=== PATIENT | female | born 1940 | race Caucasian/White ===

== ENCOUNTER 2022-06-20 09:02 | Outpatient (CLI) | payer MEDICARE, BC, SELFPAY ==
[2022-06-20 09:34] LABS: Basophils Absolute Auto 0.05 K/uL (0.00-0.30); Basophils Percent Auto 0.9 % (0.0-3.0); Eosinophils Absolute Auto 0.23 K/uL (0.00-0.50); Eosinophils Percent Auto 4.3 % (0.0-7.0); Hematocrit 52.8 % (33.0-51.0); Hemoglobin* 17.8 gm/dL (12.0-16.0); Immature Granulocytes Abs Auto 0.01 K/uL (0.00-0.30); Immature Granulocytes Pct Auto 0.2 %; Lymphocytes Absolute Auto 1.26 K/uL (0.90-2.90); Lymphocytes Percent Auto 23.4 % (20-44); Mean Corpuscular HGB Conc 34 gm/dL (32-36); Mean Corpuscular Hemoglobin 36 pg (26-34); Mean Corpuscular Volume 106 fL (80-100); Monocytes Percent Auto 14.5 % (0.0-11.0); Neutrophils Absolute Auto 3.05 K/uL (1.7-7.0); Neutrophils Percent Auto 56.7 % (42.0-72.0); Platelet Count* 166 K/uL (140-440); RDW Coefficient of Variation % 14.5 % (11.5-15.5); Red Blood Count 4.99 m/uL (4.00-5.20); White Blood Count* 5.38 K/uL (4.50-11.00)
[2022-06-20 09:49] LABS: Slide Review Reflex No
== END 2022-06-20 09:03 | disposition home or self-care (01) ==
PROVIDERS: PCP Student in an Organized Health Care Education/Training Program; Visit Provider Student in an Organized Health Care Education/Training Program
DX: D45 Polycythemia vera (principal)
CPT/HCPCS: 36415; 85025; 99195

== ENCOUNTER 2022-09-08 12:06 | Emergency (ER) | payer MEDICARE, BC, SELFPAY ==
[2022-09-08 12:21] VITALS: BP 149/75; PULSE 62; RESP 18; TEMP 36.4; O2SAT 98; BMI 22.0
--- NOTE | 2022-09-08 13:38 | ED.GENADULT ---
HPI - General Adult General Chief complaint: Fall/Minor Trauma Stated complaint: Fell last night, low BP Time Seen by Provider: 09/08/22 12:41 History of Present Illness HPI narrative: This 82-year-old female called the clinic today and was told to come into the emergency department for evaluation. She states that she had a near syncopal event last evening where she got up to the kitchen to cut some food for a little snack. She began to feel lightheaded and went to the floor. She did not lose consciousness. She does not report any injury except for a very small abrasion on the left side of her head from her glasses. She states that she feels back to normal at this time. She did start a new blood pressure medicine 5 days ago and suspected that this may have contributed to these symptoms. She did not take her hydrochlorothiazide 12.5 mg tablet today because of this. She does not report any chest pain, shortness of breath, signs of infection, or fever. Related Data Allergies Allergy/AdvReac Type Severity Reaction Status Date / Time Sulfa (Sulfonamide Allergy Verified 09/08/22 12:21 Antibiotics) Review of Systems Status of ROS: Reports: 10 or more systems reviewed and unremarkable except as noted in History and below Narrative: Constitutional: No fevers, no weight gain or loss. Eyes: No discharge. No vision changes. HENT: No congestion, no sore throat, no ear pain. Cardiovascular: No chest pain, no palpitations. Respiratory: No shortness of breath, no wheezes, no cough. Gastrointestinal: No abdominal pain, no vomiting, no diarrhea. Genitourinary: No dysuria, no hematuria. Musculoskeletal: Normal range of motion. Skin: No rashes, no pruritis. Neurological: No weakness, sensory change, speech change. Near syncopal episode last night as described above. Endo/Heme/Allergies: No bruising or bleeding. No polydipsia. Pysch: no suicidality, no anxiety, no insomnia. All other systems reviewed and are negative. PFSH PFS Social History Smoking Status: Former smoker Do you use any of these nicotine containing products: None Second hand tobacco smoke exposure: No How often do you have a drink containing alcohol: 4 or more times a week How many standard drinks containing alcohol do you have on a typical day: 1 or 2 How often do you have six or more drinks on one occasion: Never AUDIT-C Alcohol total score: 4 Non-prescribed substance use: denies use service: No Exam Narrative: Exam Narrative: Constitutional: Well-developed, well-nourished, no acute distress. HEENT: Normocephalic, atraumatic. Neck: Normal range of motion. Nontender. Supple. Heart: Regular. No murmurs. Normal rate. Intact distal pulses. Lungs: Clear to auscultation. No chest discomfort. No wheezes, rhonchi, or rales. Abdomen: Normal bowel sounds. Nontender. No rebound tenderness. Genitalia: Deferred. Back: No midline tenderness. Normal range of motion. Extremities: Normal range of motion. No injury. Skin: Intact. No rash. Warm. No erythema or pallor. Neurologic: No altered sensation. No weakness. Alert and oriented. Psychiatric: No suicidality. No anxiety or depression. No insomnia. Nursing notes and vitals signs are reviewed. Const: Vital Signs, click to edit/add: Vital Signs - 24 hr 09/08/22 12:21 Temperature 97.5 F L Pulse Rate [Pulse Oximeter] 62 Respiratory Rate 18 Blood Pressure [Ri t Upper Arm] 149/75 H Pulse Oximetry 98 Oxygen Delivery Me thod Room Air Course Vital Signs Vital signs: Initial Vital Signs Temperature 97.5 F L 09/08/22 12:21 Temperature Source Temporal Artery Scan 09/08/22 12:21 Pulse Rate 62 09/08/22 12:21 Respiratory Rate 18 09/08/22 12:21 Blood Pressure 149/75 H 09/08/22 12:21 Blood Pressure Mean 99 09/08/22 12:21 Blood Pressure Position Sitting 09/08/22 12:21 Pulse Oximetry 98 09/08/22 12:21 Oxygen Delivery Method Room Air 09/08/22 12:21 Vital Signs Temperature 97.5 F L 09/08/22 12:21 Pulse Rate 62 09/08/22 12:21 Respiratory Rate 18 09/08/22 12:21 Blood Pressure 149/75 H 09/08/22 12:21 Pulse Oximetry 98 09/08/22 12:21 Oxygen Delivery Method Room Air 09/08/22 12:21 Temperature 97.5 F L 09/08/22 12:21 Pulse Rate 62 09/08/22 12:21 Respiratory Rate 18 09/08/22 12:21 Blood Pressure 149/75 H 09/08/22 12:21 Pulse Oximetry 98 09/08/22 12:21 Oxygen Delivery Method Room Air 09/08/22 12:21 Medical Decision Making MDM Narrative Medical decision making narrative: This patient feels completely back to normal and comes in for evaluation because her primary clinic instructor to do so. She does have a follow-up with the clinic in 2 days. She did start a new medication and had a near syncopal episode last night. It is possible that the hydrochlorothiazide contributed to this. There are other factors that can cause lightheadedness additionally. For now the patient's blood pressure is a bit elevated at around 150 or 160. Her EKG shows normal sinus rhythm. Her exam is reassuring. I advised her to record her blood pressures regularly and bring this information to her follow-up appointment to re-evaluate her medications. At the time of discharge the patient appears safe for outpatient management. The treatment plan is reviewed along with written and verbal return precautions. Reasons to return and the importance of close followup were also reviewed. ECG Data Attestation: I personally reviewed and interpreted this ECG as follows: Interpretation: Normal sinus rhythm. Rate is 69 beats per minute. There are no ST or T-wave abnormalities. Discharge Plan Discharge Clinical Impression: Near syncope Patient Disposition: Home, Self-Care Condition: Improved Additional Instructions: Continue current plans. Record blood pressures and follow-up with primary physician as scheduled. Return if worsening. Follow Up/Referrals: Shira Fontana PA-C [Primary Care Provider] - Stand Alone Forms: [employer] Info Instructions
== END 2022-09-08 13:55 | disposition home or self-care (01) ==
PROVIDERS: Emergency Provider Emergency Medicine Emergency Medical Services; PCP Student in an Organized Health Care Education/Training Program
DX: R55 Syncope and collapse (principal)
CPT/HCPCS: 93005; 99283; 99284

== ENCOUNTER 2023-01-27 09:19 | Outpatient (CLI) | payer MEDICARE, BC, SELFPAY ==
--- NOTE | 2023-01-27 09:45 | CRLHL7_ITS ---
For Patients: As a result of the Century Cures Act, medical imaging exams and procedure reports are released immediately into your electronic medical record. You may view this report before your referring provider. If you have questions, please contact your health care provider. INDICATION: UNCONTROLLED HTN TECHNIQUE: Pierson scale, color Doppler and spectral Doppler evaluation of both kidneys and renal arteries performed. COMPARISON: None available FINDINGS: BILATERAL RENAL ARTERY DUPLEX ULTRASOUND ABDOMINAL AORTA: Peak systolic velocity = 70 cm/s. No aortic aneurysm. RIGHT KIDNEY: 10.4 cm in length. There is no hydronephrosis. Peak systolic velocity = 123 cm/second Renal artery to aortic peak systolic velocity ratio = 1.8 Resistive indices: 0.8 Renal vein = patent LEFT KIDNEY: 9.2 cm in length. There is no hydronephrosis. Peak systolic velocity = 99 cm/second Renal artery to aortic peak systolic velocity ratio = 1.4 Resistive indices: 0.76-0.79 Renal vein = patent IMPRESSION: No evidence of significant renal artery stenosis within the visualized renal arteries. Dictated by Brian Kern MD @ 01/27/2023 11:55:23 AM (Electronically Signed)
== END 2023-01-27 09:20 | disposition home or self-care (01) ==
LOC: US 09:20
PROVIDERS: PCP Student in an Organized Health Care Education/Training Program; Visit Provider Student in an Organized Health Care Education/Training Program
DX: I10 Essential (primary) hypertension (principal)
CPT/HCPCS: 76775; 93975

== ENCOUNTER 2024-10-07 11:06 | Emergency (ER) | payer MEDICARE, BC, SELFPAY ==
[2024-10-07] VITALS (16 sets, daily range): BP systolic 124–149; BP diastolic 68–81; PULSE 60–96; RESP 12–33; TEMP 36.3; O2SAT 93–98; BMI 22.8
--- OUTSIDE RECORDS SUMMARY | 2024-10-07 11:08 | XMS_ITS | Clinical Summary ---
Author Organization [facility] Address [address] [place] [address] Care Team Providers Care Icer Machine Name Role Phone Shira Fontana Primary Care Provider [phone] Allergies Active Allergy Reactions Criticality Noted Date Comments Diphenhydramine Behavioral Disturbances 09/17/2022 Feels antsy Hydralazine Itching 01/08/2023 Hydrochlorothiazide Itching 09/19/2022 Sulfa (Sulfonamide Antibiotics) Itching 05/14/2022 Medications aflibercept 2 mg/0.05 mL soln Inject intravitreal . 0 3 Active multivitamin (MVI) tablet Take 1 Tablet by mouth once daily. 0 3 Active timolol hemihydrate (BETIMOL) 0.5 % ophthalmic solution Place into both eyes two times daily. Active docusate (Stool Softener) 100 mg capsule Take 250 mg by mouth once daily. Taking 3 tablets a day Active spironolactone (ALDACTONE) 25 mg tabletIndications:H TN (hypertension) Take 1 Tablet (25 mg) by mouth once daily. 90 Tablet 3 4 Active carvediloL (Coreg) 25 mg tabletIndications:A trial fibrillation, unspecified type (HC),Uncontrolled hypertension Take 1 Tablet (25 mg) by mouth two times daily. 180 Tablet 3 4 Active amLODIPine (NORVASC) 10 mg tabletIndications:U ncontrolled hypertension Take 1 Tablet (10 mg) by mouth once daily. 90 Tablet 3 4 Active omega 1-coc-vva-fish oil 1,000 mg (250 mg-750 mg)/5 mL liqd Take 3 capsules. by mouth once daily. Active apixaban (Eliquis) 5 mg tabletIndications:p revent thromboembolism in chronic atrial fibrillation Take 1 Tablet (5 mg) by mouth two times daily. 180 Tablet 3 4 Active cloNIDine HCL (CATAPRES) 0.1 mg tabletIndications:H ypertension, unspecified type TAKE 1 TABLET (0.1 MG) BY MOUTH AT BEDTIME. 90 Tablet 3 4 Active valsartan (DIOVAN) 160 mg tabletIndications:P rimary hypertension Take 1 Tablet (160 mg) by mouth two times daily. 180 Tablet 3 4 Active Graduated Compression StockingsIndication s:Bilateral lower extremity edema For personal use. Length: calf Strength: 20-30 mmHg. Please measure patient at pharmacy. 1 Packet 5 Active dapagliflozin propanediol (FARXIGA) 10 mg tabletIndications:H eart failure, diastolic, due to HTN (HC) Take 1 Tablet (10 mg) by mouth once daily. 90 Tablet 3 5 Active furosemide 20 mg tabletIndications:H eart failure, diastolic, due to HTN (HC) TAKE 1/2 TABLET BY MOUTH ONCE DAILY IN THE MORNING. 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 Still tired and Lethargic. Still having dizzy spells but less intense. Feeling Fuzzy. Had one day of Ringing in ears on Thursday, No Reoccurrences ) 10/06/2024 Travel 09/30/2024 9:55 AM CDT Office Visit [facility] [address] [place] [address] Shira Fontana PA Blood Pressure (Low B/P readings at home. Has fallen 2 times and feeling off balance. Light headed feeling, neck pain, No nausea.) 09/29/2024 Travel 09/12/2024 8:32 AM CDT Anesthesia Event [facility] [address] [place] [address] Sole Bruce MD Perese, Deniz A, MD 09/12/2024 5:17 AM CDT - 09/12/2024 2:00 PM CDT Hospital Encounter [address] [address] Eliud Braxton MD Left renal mass Discharge Disposition: Home Self Care 09/12/2024 Travel 09/06/2024 2:00 PM CDT Ancillary Procedure [facility] [address] [place] [address] 09/06/2024 9:55 AM CDT Office Visit [facility] [address] [place] [address] Shira Fontana PA Fall (08/27 wasn't feeling right when fel happened,l in Kitchen. No Current URBINA. Having some Tired feelings. No dizzy spells. Has list of B/P from 08/31-09/06) 09/05/2024 Travel 08/22/2024 Refill [facility] [address] [place] [address] Shira Fontana PA Refill Request (Furosemide) 08/17/2024 9:30 AM CDT Office Visit [facility] [address] [place] [address] Shira Fontana PA Preoperative Exam (Dr. Carlos. Freezing left Kidney. ) 08/17/2024 Travel 08/16/2024 Telephone [facility] [address] [place] [address] Shira Fontana PA Appointment 08/12/2024 Travel 08/04/2024 2:00 PM NEWS VIDEOGRAPHER Office Visit [address] [place] [address] [place] [address] Brian Muñoz MD Follow Up; CV General Cardiology Est (clearance) 08/04/2024 Travel 08/02/2024 Travel 07/30/2024 Telephone [facility] [address] [place] [address] Shira Fontana PA Prior Authorization (dapagliflozin propanediol (FARXIGA) 10 mg tablet (APPROVED 06/30/24 - 07/30/25)) 07/26/2024 9:20 AM NEWS VIDEOGRAPHER Ancillary Procedure [facility] [address] [place] [address] 07/25/2024 Travel 07/18/2024 10:20 AM NEWS VIDEOGRAPHER Office Visit [facility] [address] [place] [address] Shira Fontana PA Concerns (Cannot stay asleep/Wants labs regarding failing a preop exam) 07/18/2024 Travel 07/13/2024 Travel from Last 3 Months Immunizations Immunization Administration Dates Next Due COVID-19 VACCINE SPIKEVAX (M ODERNA 50MCG/0.5ML) 12YO+ PFS 12/08/2023,03/24/2023 COVID-19 vaccine (Moderna 100mcg/0.5mL) PF, MDV 03/28/2021,07/13/2020 COVID-19 vaccine (Moderna 50 mcg/0.5mL) 12YO+ BIVALENT PF, MDV 08/10/2020 Influenza Virus, Unspecified 03/10/2022,08/10/19 21 Influenza, Inactivated AIIV4 (Age 65+ Years) Preserv Free 02/16/2023 Influenza, Inactivated IIV3 (Age 65+ Years) Preserv Free 02/09/2024 Pneumococcal, Unspecified 01/30/2010,06/01/2000 RSV, Recombinant ADJ Reconst ituted (Arexvy 120MCG/0.5mL) 02/23/2024 Zoster (Zostavax-ZVL, live) 06/01/2021 Family History Medical History Relation Name Comments Stroke Father Hypertension Mother Cancer-breast Sister Hypertension Sister Restless legs syndrome Son Orion Cancer-ovarian No Family History Relation Name Status Comments Daughter Nisreen Alive Father Mother Sister Son Orion Alive Social History Tobacco Use Types Packs/Day Years Used Date Smoking Tobacco: Former Cigarettes 1 10 Smokeless Tobacco: Never Tobacco Cessation:Counseling Given: Yes Alcohol Use Standard Drinks/Week Comments Yes 14 (1 standard drink = 0.6 oz pu re alcohol) 2 drinks / day PHQ-2 Answer Date Recorded PHQ-2 TOTAL SCORE 0 07/18/2024 Social Connections Answer Date Recorded Do you often feel lonely or isolated from those around you? 0 09/05/2024 Financial Resource Strain Answer Date R ecorded Difficulty of Paying Living Expenses 3 09/05/2024 Difficulty of Paying Living Expenses Not on file 09/05/2024 Food Insecurity Answer Date Recorded Do you worry your food will run out before you are able to buy more? 1 09/05/2024 Transportation Needs Answer Date Record ed Does lack of transportation keep you from medica l appointments? 1 09/05/2024 Does lack of transportation keep you from work, meetings or getting things that you need? 1 09/05/2024 Housing Stability Answer Date Recorded What is your housing situation today? 1 09/05/2024 Interpersonal Safety Answer Date Record ed Are you being hit, kicked, p ushed or yelled at (see row info)? No 09/12/2024 Interpersonal Safety Abuse 12 - 18 Not on file 09/12/2024 Interpersonal Safety Ambulatory Vulnerability No t on file 09/12/2024 Utilities Answer Date Recorded Do you have trouble paying f or utilities (for example, heat, electricity, water, phone)? 1 09/05/2024 Comments No Sex and Gender Information Value Date Recorded Sex Assigned at Not on file Legal Sex Female 8:26 AM NEWS VIDEOGRAPHER Gender Identity Not on file Sexual Orientation Not on file Occupation Industry Job Start Date Job End Date [place] [employer] Not on file Not on file Not on file Obstetrics History Last Filed Vital Signs Vital Sign Reading Time Taken Comments Blood Pressure 92/52 10/07/2024 9:23 AM CDT Pulse 70 10/07/2024 9:23 AM CDT Temperature 36.2 C (97.1 F) 09/12/2024 10:50 AM CDT Respiratory Rate 16 09/12/2024 10:50 AM CDT Oxygen Saturation 99% 09/30/2024 9:48 AM CDT Inhaled Oxygen Concentration - - Weight 62.1 kg (137 lb) 10/07/2024 9:23 AM CDT Height 165.1 cm (5' 5) 09/12/2024 6:23 AM CDT Body Mass Index 22.8 09/12/2024 6:23 AM CDT Plan of Treatment Upcoming Encounters Date Type Department Care Team (Late st Contact Info) Description 10/11/2024 10:00 AM CDT Office Visit [facility] [address] [facility] [address] [place] [id number] Jamari Anders MD [address] [facility] [address] [place], [place] [id number] Health Maintenance Due Date Last Done Comments Tdap 08/20/1951 Pneumococcal series for age 50+ (1 of 2 - PCV) 08/20/1959 01/30/2010, 06/01/2000 Tetanus booster 1960 DEXA/DXA scan for age 65+ 2005 Zoster (shingles) series for age 50+ (1 of 2) 07/27/2021 06/01/2021 COVID-19 vaccine series (7 - Moderna risk season) 2024 02/23/2024, 12/08/2023, 03/24/2023, Additional history exists Medicare Wellness for age 65+ 02/09/2025 02/09/2024, 01/07/2023 Depression screening for age 12+ 07/18/2025 07/18/2024, 01/09/2023, 01/09/2023, Additional history exists BMI (ht and wt on same day) for age 18+ 08/04/2025 08/04/2024, 07/18/2024, 03/04/2024, Additional history exists Influenza Vaccine Completed 02/09/2024, , 03/10/2022, Additional history exists RSV vaccine for adults or Completed 02/23/2024 Procedures Procedure Name Priority Date/Time Associated Diagnosis Comments BASIC METABOLIC PANEL Routine 09/30/2024 10:53 AM CDT Hypotension, unspecified hypotension type CT CRYOTHERAPY KIDNEY LEFT Routine 09/12/2024 10:02 AM CDT Left renal mass ENDOTRACHEAL TUBE Routine 09/12/2024 9:4 7 AM CDT ENDOTRACHEAL TUBE Routine 09/12/2024 9:4 7 AM CDT ENDOTRACHEAL TUBE Routine 09/12/2024 9:4 7 AM CDT ENDOTRACHEAL TUBE Routine 09/12/2024 9:4 7 AM CDT PROTIME-INR STAT 09/12/2024 8:02 AM CDT PLATELET COUNT STAT 09/12/2024 8:02 AM CDT HEMOGLOBIN STAT 09/12/2024 8:02 AM CDT SCAN-CARDIAC STRIP 09/12/2024 12 :[address] HEAD BRAIN WO STAT 09/06/2024 10:4 8 AM CDT Traumatic injury of head, initial encounter HEMOGLOBIN Routine 08/17/2024 9:53 AM CDT Preoperative cardiovascular examination BASIC METABOLIC PANEL Routine 08/17/2024 9:53 AM CDT Preoperative cardiovascular examination XR MAMMO BRENDA UNI SCREEN RIGHT Routine 07/26/2024 9:27 AM NEWS VIDEOGRAPHER Visit for screening mammogram BASIC METABOLIC PANEL Routine 07/18/2024 11:39 AM NEWS VIDEOGRAPHER Heart failure, diastolic, due to HTN (HC) from Last 3 Months Results * (ABNORMAL) BASIC METABOLIC PANEL (09/30/2024 10:53 AM CDT) Only the most recent of3 resultswithin the time period is included. GLUCOSE 108(H) 65 - 99 mg/dL [facility] Comment: Fasting reference interval For someone without known diabetes, a glucose value between 100 and 125 mg/dL is consistent with prediabetes and should be confirmed with a follow-up test. UREA NITROGEN (BUN) 38(H) 7 - 25 mg/dL [facility] CREATININE 1.42(H) 0.60 - 0.95 mg/dL [facility] EGFR 36(L) > OR = 60 mL/min/1.7 3m2 [facility] BUN/CREATININE RATIO 27(H) 6 - 22 (calc) [facility] SODIUM 137 135 - 146 mmol/L [facility] POTASSIUM 4.4 3.5 - 5.3 mmol/L [facility] CHLORIDE 96(L) 98 - 110 mmol/L [facility] CARBON DIOXIDE 28 20 - 32 mmol/L [facility] ELECTROLYTE BALANCE 13 7 - 17 mmol/L (calc) [facility] CALCIUM 10.7(H) 8.6 - 10.4 mg/dL [facility] Blood BLOOD SPECIMEN / Unknown 09/30/2024 10:53 AM CDT 09/30/2024 10:53 AM CDT us Shira HERBERT CHEMISTRY Final Res ult [employer] [address] [place] [address], [place] [address] [place] [address] * CT CRYOTHERAPY KIDNEY LEFT (09/12/2024 10:02 AM CDT) Anatomical Region Laterality Modality KIDNEY L Computed Tomogra phy, Other, Other 09/12/2024 10:0 2 AM CDT Impressions 09/12/2024 10:[address]-guided cryoablation of the mid left renal biopsy-proven clear cell carcinoma. Narrative 09/12/2024 10:59 AM CDT For Patients: As a result of the Cures Act, medical imaging exams and procedure reports are released immediately into your electronic medical record. You may view this report before your referring provider. If you have questions, please contact your health care provider. [facility] LOCATION: [facility] MEDICAL IMAGING DATE: 09/12/2024 PROCEDURE: CT GUIDED LEFT RENAL MASS CRYOABLATION INTERVENTIONAL RADIOLOGIST: Eliud Braxton MD. 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 MODERATE SEDATION: General endotracheal anesthesia. ANTIBIOTICS: Ancef 2 g IV. ADDITIONAL MEDICATIONS: None. FLUOROSCOPIC TIME: 0.2 minutes. DOSE LENGTH PRODUCT: 672 mGycm. CONTRAST: 5 mL of contrast diluted and 95 mL of saline. COMPLICATIONS: No immediate complications. PROCEDURE/TECHNIQUE: A nonenhanced CT study was performed for localization purposes. Using intermittent CT fluoroscopy, a variable length cryoprobe was inserted into the exophytic mass arising from the lateral left kidney and stuck into place. Using intermittent CT fluoroscopy, a 5 Kosovan b-datumeh catheter was advanced between the anterior kidney and colon and hydrodissection was performed with 100 mL of dilute contrast. A standard 10 minute freeze cycle was performed with intermittent CT monitoring to evaluate for a ice ball coverage. After the cryoprobe had thawed, it was removed. A completion nonenhanced CT study was obtained to evaluate for perirenal hemorrhage or complication. Dose reduction techniques were used. FINDINGS: The construction operations manager image shows the partially exophytic solid mass arising from the mid left kidney partial nephrectomy site. Images obtained during probe placement show the cryoprobe which appears to transverse the central aspect of the mass. Images obtained during hydrodissection show displacement of the colon anteriorly. Images obtained during the cryoablation show the ablation defect which appears to completely encompassed the intended target. Completion images show the ablation defect which appears to completely encompassed the lesion. No significant perirenal or retroperitoneal hemorrhage. Procedure Note Eliud Braxton MD - 09/12/2024 For Patients: As a result of the Cures Act, medical imagingexams and procedure reports are released immediately into your electronicmedical record. You may view this report before your referring provider.If you have questions, please contact your health care provider. [facility] LOCATION: [facility] MEDICAL IMAGING DATE: 09/12/2024 PROCEDURE: CT GUIDED LEFT RENAL MASS CRYOABLATION INTERVENTIONAL RADIOLOGIST: Eliud Braxton MD. INDICATION: 84-year-old female with a recurrent clear cell carcinoma ofthe left kidney along a previous partial nephrectomy resection. MODERATE SEDATION: General endotracheal anesthesia. ANTIBIOTICS: Ancef 2 g IV. ADDITIONAL MEDICATIONS: None. FLUOROSCOPIC TIME: 0.2 minutes. DOSE LENGTH PRODUCT: 672 mGycm. CONTRAST: 5 mL of contrast diluted and 95 mL of saline. COMPLICATIONS: No immediate complications. PROCEDURE/TECHNIQUE: A nonenhanced CT study was performed for localization purposes. Using intermittent CT fluoroscopy, a variable length cryoprobe wasinserted into the exophytic mass arising from the lateral left kidney andstuck into place. Using intermittent CT fluoroscopy, a 5 Kosovan Yueh catheter was advancedbetween the anterior kidney and colon and hydrodissection was performedwith 100 mL of dilute contrast. A standard 10 minute freeze cycle was performed with intermittent CTmonitoring to evaluate for a ice ball coverage. After the cryoprobe hadthawed, it was removed. A completion nonenhanced CT study was obtained to evaluate for perirenalhemorrhage or complication. Dose reduction techniques were used. FINDINGS: The construction operations manager image shows the partially exophytic solid mass arising from themid left kidney partial nephrectomy site. Images obtained during probe placement show the cryoprobe which appears totransverse the central aspect of the mass. Images obtained during hydrodissection show displacement of the colonanteriorly. Images obtained during the cryoablation show the ablation defect whichappears to completely encompassed the intended target. Completion images show the ablation defect which appears to completelyencompassed the lesion. No significant perirenal or retroperitonealhemorrhage. IMPRESSION: Successful CT-guided cryoablation of the mid left renal biopsy-provenclear cell carcinoma. Eliud Braxton MD CT Final Resul t * HCHG TUBE PR1, HCHG KIT CO2 DETECTOR PR5, HCHG STYLET PR1, HCHG MOUTHPIECE PR1 (09/12/2024 9:47 AM CDT) Narrative Hyun Zayas CRNA - 09/12/2024 9:47 AM CDT Hyun Zayas CRNA 09/12/2024 9:48 AM Procedure: ETT Patient location during procedure: procedure room ETT Properties Mask Ventilation: easy Final Technique: direct laryngoscopy Type: straight Location: oral Cuffed: yes Tube Size: 7.0 mm Stylet: yes Laryngoscope Blade: Lobo Blade Size: 2 Cormack-Lehane Grade View: 1 Insertion Attempts: 1 Placement Verification: auscultation, end tidal CO2 and symmetrical chest wall movement Assessment: pharynx clear, atraumatic and dentition unchanged Secured at: 22 Measured From: teeth Tooth guard used and removed: yes Difficulty: 0 (not difficult) Result [facility] Sole Bruce MD ANESTHESIA PX NOTE ORD ERABLES Final Result * PLATELET COUNT (09/12/2024 8:02 AM CDT) PLATELET COUNT 151 140 - 440 thou/cu mm 09/12/2024 8:13 AM CDT [facility] MPV 10.1 6.5 - 11.0 fL 09/12/2024 8:13 AM CDT [facility] Blood BLOOD SPECIMEN / Unknown Non-Lab Venipuncture / Unknown 09/12/2024 8:02 AM CDT 09/12/2024 8:07 AM CDT Result [facility] Eliud Braxton MD HEMATOLOGY Final Resul t [facility] S[address]OUT INTERNAL [address] [id number] [address] [place] [address] * (ABNORMAL) HEMOGLOBIN (09/12/2024 8:02 AM CDT) Only the most recent of2 resultswithin the time period is included. HEMOGLOBIN 16.1(H) 12.0 - 16.0 g/dL 09/12/2024 8:13 AM CDT [facility] MCV 103(H) 80 - 100 fL 09/12/2024 8:13 AM CDT [facility] Blood BLOOD SPECIMEN / Unknown Non-Lab Venipuncture / Unknown 09/12/2024 8:02 AM CDT 09/12/2024 8:07 AM CDT Eliud Braxton MD HEMATOLOGY Final Resul t Performing Organization Address [facility] de Phone Number [facility] SENDOUT INTERNAL [address] [place] [id number] * (ABNORMAL) PROTIME-INR (09/12/2024 8:02 AM CDT) INR 1.2 <1.3 09/12/2024 8:17 AM CDT [facility] PROTIME 13.9(H) 10.6 - 12.4 sec 09/12/2024 8:17 AM CDT [facility] Blood BLOOD SPECIMEN / Unknown Non-Lab Venipuncture / Unknown 09/12/2024 8:02 AM CDT 09/12/2024 8:07 AM CDT Narrative [facility] - 09/12/2024 8:17 AM CDT Therapeutic Range 2.0-3.0 for most anticoagulated patients 2.5-3.5 or 4.0 for high risk patients The INR is only used for patients on stable oral anticoagulant therapy. It makes no significant contribution to the diagnosis or treatment of patients whose Protime is prolonged for other reasons. INR results are increased when heparin levels exceed 1.0 U/mL, which corresponds to an aPTT >125 seconds if the patient is on UFH. Eliud Braxton MD HEMATOLOGY Final Resul t Performing Organization Address City/[facility]/ZIP Co de Phone Number [facility] SENDOUT INTERNAL ZIP [phone] [place] [address] * SCAN-CARDIAC STRIP (09/12/2024 12:00 AM CDT) Narrative 09/12/2024 12:00 AM CDT Ordered by an unspecified provider. us Other Clinical Staff OTHER Final Resul t * CT HEAD BRAIN WO (09/06/2024 10:48 AM CDT) Anatomical Region Laterality Modality HEAD, BRAIN Computed Tomogra phy 09/06/2024 11:0 3 AM CDT Impressions 09/06/2024 11:03 AM CDT No acute intracranial noncontrast CT findings. Qrso-pi-onslepqw hypoattenuating changes in the white matter which are nonspecific, but commonly attributable to chronic microangiopathic change. Please note that all CT scans at this facility use dose modulation, iterative reconstruction, and/or weight-based dosing when appropriate to reduce radiation dose to as low as reasonably achievable. Dictated by Darian Howe MD @ 09/06/2024 11:03:25 AM (Electronically Signed) Narrative 09/06/2024 11:03 AM CDT For Patients: As a result of the Cures Act, medical imaging exams and procedure reports are released immediately into your electronic medical record. You may view this report before your referring provider. If you have questions, please contact your health care provider. INDICATION: Trauma COMPARISON: None. TECHNIQUE: CT of the head without contrast. FINDINGS: Brain, ventricles, and extra-axial spaces: No acute intracranial hemorrhage. Woods-white differentiation is grossly preserved. Jqth-qd-xfoykaum hypoattenuating changes in the white matter which are nonspecific, but commonly attributable to chronic microangiopathic change. Mild parenchymal volume loss with commensurate size of the ventricles and sulci. There are intracranial vascular calcifications. Bones: No acute osseous findings. Visualized paranasal sinuses are clear. Visualized mastoid air cells are clear. Procedure Note Darian Howe MD - 09/06/2024 For Patients: As a result of the Cures Act, medical imagingexams and procedure reports are released immediately into your electronicmedical record. You may view this report before your referring provider.If you have questions, please contact your health care provider. INDICATION: Trauma COMPARISON: None. TECHNIQUE: CT of the head without contrast. FINDINGS: Brain, ventricles, and extra-axial spaces: No acute intracranialhemorrhage. Woods-white differentiation is grossly preserved.Lrha-la-huwsexnk hypoattenuating changes in the white matter which arenonspecific, but commonly attributable to chronic microangiopathic change.Mild parenchymal volume loss with commensurate size of the ventricles andsulci. There are intracranial vascular calcifications. Bones: No acute osseous findings. Visualized paranasal sinuses are clear.Visualized mastoid air cells are clear. IMPRESSION: No acute intracranial noncontrast CT findings. Rsfj-ee-xnlptsby hypoattenuating changes in the white matter which arenonspecific, but commonly attributable to chronic microangiopathicchange. Please note that all CT scans at this facility use dose modulation,iterative reconstruction, and/or weight-based dosing when appropriate toreduce radiation dose to as low as reasonably achievable. Dictated by Darian Howe MD @ 09/06/2024 11:03:25 AM (Electronically Signed) us Shira HERBERT CT Final Res ult * XR MAMMO BRENDA UNI SCREEN RIGHT (07/26/2024 9:27 AM NEWS VIDEOGRAPHER) Anatomical Region Laterality Modality BREASTS, Breast Right Right Mammograph y Impressions 07/27/2024 2:54 PM NEWS VIDEOGRAPHER There is no radiographic evidence for malignancy. Recommend annual mammograms. MAMMOGRAM ASSESSMENT: ACR 1 Negative PATIENTS: You will also receive a letter with your examination results in an easy to read format. If you have questions about your results, please contact your referring provider. Narrative 07/27/2024 2:54 PM NEWS VIDEOGRAPHER For Patients: As a result of the 21st Century Cures Act, medical imaging exams and procedure reports are released immediately into your electronic medical record. You may view this report before your referring provider. If you have questions, please contact your health care provider. XR MAMMO BRENDA UNI SCREEN RIGHT [[id number]] CLINICAL HISTORY: This is an asymptomatic 83 y.o. patient. INDICATION FOR EXAM: Mammogram Screening. TECHNIQUE: CC and MLO views were obtained. This study was evaluated with the assistance of Computer-Aided Detection. Breast Tomosynthesis was used in interpretation. COMPARISON FILM: Yes 07/07/23 [facility] 2/1/23 [facility] FINDINGS: The breasts are heterogeneously dense, which may obscure small masses. There are no dominant masses, suspicious micro calcifications or areas of architectural distortion. Shira HERBERT MAMMO Final Res ult from Last 3 Months Insurance MEDICARE PB ONLY [facility] EMP MEDICARE PART B HB ONLY MEDICARE PART A HB ONLY Advance Directives Documents on File Type Date Recorded Patient Dipper And Drier Expl anation Power of Ammonia Technician 09/29/2022 11:51 AM Healthcare Directive 09/29/2022 11:50 AM Healthcare Directive 05/07/2004 004 * Full Code (Latest Code Status on File) Date Activated Date Inactivated Comments 12/26/2022 10:58 AM 12/27/2022 12:27 PM Question Answer Comments Code Status Discussion: Reviewed Preferences * Full Code Date Activated Date Inactivated Comments 09/29/2022 11:01 AM 09/30/2022 6:45 PM Question Answer Comments Code Status Discussion: Unable to Assess Preferences, Provider to review later Care Teams Icer Machine Relationship Specialty Start Date End Date Shira Fontana PA [address] [place] [address] PCP - General Physician Warehouse Worker 08/26/22
--- NOTE | 2024-10-07 11:35 | ED.GENADULT ---
HPI - General Adult General Date Seen: 10/07/24 Chief complaint: Hypotension Stated complaint: Clinic sent her over to ED- low pressure Time Seen by Provider: 10/07/24 11:21 History of Present Illness HPI narrative: 84 yo F is sent to the ER today by clinic for evaluation of low blood pressure readings. She does not have any significant past medical records in the [facility] system but does have records through the [facility] system through [employer] care link. Past medical history includes hypertension, diastolic heart failure, atrial fibrillation, papillary thyroid carcinoma, macular degeneration, bilateral glaucoma, history of breast cancer, polycythemia, left renal cell carcinoma, chronic kidney disease. Current med list from [facility] multivitamin (MVI) tablet Take 1 Tablet by mouth once daily. Notes for this order:?Patient is taking. 06/16/2022 ? ? Graduated Compression Stockings For personal use. Length: calf Strength: 20-30 mmHg. Please measure patient at pharmacy. 06/17/2024 ? ? furosemide 20 mg tablet TAKE 1/2 TABLET BY MOUTH ONCE DAILY IN THE MORNING. 08/24/2024 ? ? omega 1-quc-apb-fish oil 1,000 mg (250 mg-750 mg)/5 mL liqd Take 3 capsules. by mouth once daily. ? ? ? valsartan (DIOVAN) 160 mg tablet Take 1 Tablet (160 mg) by mouth two times daily. 04/25/2024 ? ? timolol hemihydrate (BETIMOL) 0.5 % ophthalmic solution Place into both eyes two times daily. ? ? ? spironolactone (ALDACTONE) 25 mg tablet Take 1 Tablet (25 mg) by mouth once daily. 11/16/2023 ? ? apixaban (Eliquis) 5 mg tablet Take 1 Tablet (5 mg) by mouth two times daily. 03/23/2024 ? ? amLODIPine (NORVASC) 10 mg tablet Take 1 Tablet (10 mg) by mouth once daily. 02/09/2024 ? ? aflibercept 2 mg/0.05 mL soln Inject intravitreal. 06/16/2022 ? ? carvediloL (Coreg) 25 mg tablet Take 1 Tablet (25 mg) by mouth two times daily. 02/09/2024 ? ? docusate (Stool Softener) 100 mg capsule Take 250 mg by mouth once daily. Taking 3 tablets a day ? ? ? dapagliflozin propanediol (FARXIGA) 10 mg tablet Take 1 Tablet (10 mg) by mouth once daily. 08/08/2024 ? ? cloNIDine HCL (CATAPRES) 0.1 mg tablet TAKE 1 TABLET (0.1 MG) BY MOUTH AT BEDTIME. Per [facility] Notes... Follow up. Still tired and Lethargic. Still having dizzy spells but less intense. Feeling Fuzzy per [facility] phone note from 10/04 When she woke up this morning at 7:30, her blood pressure was 96/46 with pulse of 62. At 2 PM her reading was 119/69 and at 4 PM it was 123/76. ? She felt fuzzy and fatigued for most of the day. As her blood pressure has increased, she has been feeling better. Patient currently denies any lightheadedness, shortness of breath, chest pain, and leg swelling. ? She stopped her clonidine over the weekend as we discussed on 09/30/24. ? Patient is instructed to hold her amlodipine and spironolactone for now. Continue carvedilol, Lasix, and losartan. Continue checking blood pressures at home twice daily. Per clinic note 09/30/24 Patient has a longstanding history of resistant hypertension, which has been managed by Cardiology. ? However, she reports persistent low blood pressure and associated lightheadedness, which has been more pronounced over the past few days. Efforts have been made to increase water intake. Blood pressure was noted to be slightly low during a recent kidney procedure, a deviation from her usual normotensive state. Concern is expressed about potential falls due to lightheadedness, as a fall occurred on 09/08/2024 around 6:30 PM, and another near-fall incident around 7:30 PM. Additionally, she reports feeling unwell upon waking in the morning, a symptom that was not initially present. No shortness of breath, headaches, or changes in vision are reported. ? Current medications include carvedilol 25 mg twice daily, furosemide 10 mg daily, valsartan 160 mg twice daily, amlodipine 10 mg at bedtime, and clonidine 0.1 mg once daily. Farxiga has been discontinued for a couple of weeks without noticeable effects. No ankle swelling is reported she had a preop physical in July in anticipation of upcoming cryotherapy for left renal cell carcinoma to have been done by Dr. Braxton at [facility] on 09/12. History This morning from the patient: she had a dizzy lightheaded spell on August 27 that led her to fall. She did not come to the ER that visit. She did lose full consciousness. Since then she has been having episodes nearly every day where she has trouble with lightheadedness. Often times these episodes occur when she goes from sitting to standing. They happen not every day but most days and sometimes more than once per day. No other symptoms directly associated with the episodes. no chest pain, palpitations, shortness of breath. No severe headache. She has been working hurt her primary care provider at the [facility] clinic to wean off medications and she has stopped taking clonidine , Farxiga,and amlodipine. She is still on carvedilol. and she still on her Eliquis for AFib stroke prophylaxis. She had an episode on Thursday evening where she got lightheaded and her ringing in her ears and was near passing out. Apparently this was associated with standing up from a chair in her kitchen. She had 2 more episodes yesterday morning where she was symptomatic. She was using her home blood pressure cuff. She gets blood pressure readings that are low while she is symptomatic ( 1 reading yesterday was 84/60, the other episode was about 78/48). Between episodes her blood pressure readings are in the low normal range. She had a previously scheduled checkup this morning in the [facility] clinic for her blood pressure. Upon hearing the symptoms her clinic referred her here to the ER. She is not currently symptomatic and her blood pressure reading is in the normal range 124/81. no other clear symptoms. No recent black or bloody stools. No other external bleeding. No abdominal pain. No back pain. Urination has been normal. No dysuria, urgency frequency but she does note that she has not urinated at all yet today. She did not have much to drink this morning before her clinic visit either. No fever. No cough. No chest pain. No shortness of breath. No palpitations. No headache. No neck pain. No focal numbness or weakness in her arms or legs. ? Related Data Home Medications ?Medication ?Instructions ?Recorded ?Confirmed apixaban 5 mg tablet (Eliquis) 5 mg PO BID 10/07/24 10/07/24 carvedilol 25 mg tablet 25 mg PO BID 10/07/24 10/07/24 furosemide 20 mg tablet 10 mg PO QAM 10/07/24 10/07/24 timolol maleate 0.5 % eye drops 1 drp ophthalmic (eye) BID 10/07/24 10/07/24 valsartan 160 mg tablet 160 mg PO BID 10/07/24 10/07/24 Allergies Allergy/AdvReac Type Severity Reaction Status Date / Time diphenhydramine (From Allergy Intermediate behavorial Verified 10/07/24 11:34 Benadryl) disturbance hydralazine Allergy Mild itching Verified 10/07/24 11:34 hydrochlorothiazide Allergy Mild itching Verified 10/07/24 11:34 Sulfa (Sulfonamide Allergy Verified 10/07/24 11:34 Antibiotics) PFSH [facility] Social History Smoking Status: Former smoker Do you use any of these nicotine containing products: None Second hand tobacco smoke exposure: No How often do you have a drink containing alcohol: 4 or more times a week How many standard drinks containing alcohol do you have on a typical day: 1 or 2 How often do you have six or more drinks on one occasion: Never AUDIT-C Alcohol total score: 4 Non-prescribed substance use: denies use service: No Exam Narrative: Exam Narrative: Constitutional: Appears well-developed and well-nourished. Alert. Conversant. Non toxic. HENT: Head: Atraumatic. Nose: Nose normal. Mouth/Throat: Oral mucosa is clear and moist. no trismus. Pharynx normal. Tonsils symmetric. No tonsillar enlargement, erythema, or exudate. Eyes: Conjunctivae normal. EOM normal. Pupils equal, round, and reactive to light. No scleral icterus. Neck: Normal range of motion. Neck supple. No tracheal deviation present. No JVD Cardiovascular: Normal rate, regular rhythm. No gallop. No friction rub. No murmur heard. Symmetric radial artery pulses Pulmonary/Chest: Effort normal. No stridor. No respiratory distress. No wheezes. No rales. No rhonchi . No tenderness. Abdominal: Soft. Bowel sounds normal. No distension. No mass. No tenderness. No rebound. No guarding. Musculoskeletal: RUE: Normal range of motion. No tenderness. No deformity LUE: Normal range of motion. No tenderness. No deformity RLE: Normal range of motion. No edema. No tenderness. No deformity LLE: Normal range of motion. No edema. No tenderness. No deformity Lymph: No cervical adenopathy. Neurological: Alert and oriented to person, place, and time. Normal strength. CN II-VII intact. No sensory deficit. GCS eye subscore is 4. GCS verbal subscore is 5. GCS motor subscore is 6. Normal coordination Skin: Skin is warm and dry. No rash noted. No pallor. Normal capillary refill. Psychiatric: Normal mood. Normal affect. Const: Vital Signs, click to edit/add: Vital Signs - 24 hr 10/07/24 11:19 10/07/24 13:29 10/07/24 13:30 Temperature 97.4 F L Pulse Rate 96 96 Pulse Rate [Right Pulse Oximeter] 60 Respiratory Rate 18 18 33 H Blood Pressure Blood Pressure [Ri ght Upper Arm] 124/81 Pulse Oximetry 97 96 93 Oxygen Delivery Il thod Room Air 10/07/24 13:32 10/07/24 13:33 10/07/24 13:45 Temperature Pulse Rate 86 Pulse Rate [Right Pulse Oximeter] Respiratory Rate 18 12 16 Blood Pressure 149/68 H Blood Pressure [Ri ght Upper Arm] Pulse Oximetry 93 98 [facility] 10/07/24 14:00 10/07/24 14:15 10/07/24 14:30 Temperature Pulse Rate 87 88 Pulse Rate [Right Pulse Oximeter] Respiratory Rate 15 17 Blood Pressure Blood Pressure [Ri ght Upper Arm] Pulse Oximetry 96 95 Oxygen Delivery Il thod 10/07/24 14:45 10/07/24 15:00 10/07/24 15:15 Temperature Pulse Rate 85 94 Pulse Rate [Right Pulse Oximeter] Respiratory Rate 20 17 24 Blood Pressure Blood Pressure [Ri ght Upper Arm] Pulse Oximetry 94 93 Oxygen Delivery Me thod 10/07/24 15:30 10/07/24 15:45 10/07/24 15:54 Temperature Pulse Rate 83 90 87 Pulse Rate [Right Pulse Oximeter] Respiratory Rate 18 16 18 Blood Pressure 147/78 H Blood Pressure [Ri ght Upper Arm] Pulse Oximetry 96 94 95 Oxygen Delivery Il thod 10/07/24 16:00 Temperature Pulse Rate 90 Pulse Rate [Right Pulse Oximeter] Respiratory Rate Blood Pressure Blood Pressure [Ri ght Upper Arm] Pulse Oximetry 97 Oxygen Delivery Me thod Course Vital Signs Vital signs: Initial Vital Signs Temperature 97.4 F L 10/07/24 11:19 Temperature Source Temporal Artery Scan 10/07/24 11:19 Pulse Rate 60 10/07/24 11:19 Respiratory Rate 18 10/07/24 11:19 Blood Pressure 124/81 10/07/24 11:19 Blood Pressure Mean 95 10/07/24 11:19 Blood Pressure Position Sitting 10/07/24 11:19 Pulse Oximetry 97 10/07/24 11:19 Oxygen Delivery Method Room Air 10/07/24 11:19 Vital Signs Temperature 97.4 F L 10/07/24 11:19 Pulse Rate 60 10/07/24 11:19 Respiratory Rate 18 10/07/24 11:19 Blood Pressure 124/81 10/07/24 11:19 Pulse Oximetry 97 10/07/24 11:19 Oxygen Delivery Method Room Air 10/07/24 11:19 Temperature 97.4 F L 10/07/24 11:19 Pulse Rate 90 10/07/24 16:00 Respiratory Rate 18 10/07/24 15:54 Blood Pressure 147/78 H 10/07/24 15:54 Pulse Oximetry 97 10/07/24 16:00 Oxygen Delivery Method Room Air 10/07/24 13:32 Medications Administered Medications: Discontinued Medications Generic Name Dose Route Start Last Admin Trade Name Freq PRN Reason Stop Dose Admin Sodium Chloride 1,000 mls @ 1,000 mls/hr 10/07/24 12:30 10/07/24 13:52 0.9 % Sodium Chloride 1000 Ml IV 10/07/24 13:29 Infused .Q1H MAX Infusion Medical Decision Making [facility] Narrative Medical decision making narrative: many causes for her episodes of dizziness and lightheadedness are considered. 1. Cardiac. EKG shows Atrial fibrillation. is previously known and chronic for the patient. Rate controlled. She does note episodes of dizziness yesterday morning with low blood pressure readings. Notably, her blood pressure cuff reads her heart rate and during these episodes of low blood pressure her heart rate was in the 70s and 80s. This would not suggest that she is having episodes of AFib with RVR. No ischemia. Troponin undetectable. Magnesium is slightly elevated at 2080. However chest x-ray is by myself and by Radiology as clear. No signs of pulmonary edema on imaging. 2. She may be slightly dehydrated based on elevated BUN and creatinine. Other electrolytes normal. Received a L of IV fluid here in the ER. And is currently asymptomatic. Blood pressure normal and no dizziness. She does have renal insufficiency which is probably prerenal. 3. Blood counts on CBC look good. Hemoglobin 15.9 also slightly elevated suggesting possible dehydration. 4. She is not febrile white count normal but consider possible infection. Urinalysis is abnormal with pyuria and hematuria. Also moderate squamous epithelia cells so could be a contaminated specimen. However with positive nitrite, will treat with a course of antibiotics. At this point there is no clear evidence for urosepsis requiring hospitalization. Based on allergies would avoid self up but will put her on cephalexin 500 b.i.d. for 7 days. Patient request Inst[facility]eds-provided. 5. She denies any recent black or bloody stools. No recent trauma or headache or focal neurologic deficits to suggest she needs head CT. Lab Data Labs: Lab Results 10/07/24 10/07/24 10/07/24 Range/Units 12:19 12:25 12:47 WBC 6.67 (4.50-11.00) K/uL RBC 4.51 (4.00-5.20) m/uL Hgb 15.9 (12.0-16.0) gm/dL Hct 47.2 (33.0-51.0) % MCV 105 H (80-100) fL MCH 35 H (26-34) pg MCHC 34 (32-36) gm/dL RDW Coeff of Carmita 12.4 (11.5-15.5) % Plt Count 151 (140-440) K/uL Neut % (Auto) 65.2 (42.0-72.0) % Lymph % (Auto) 20.4 (20-44) % [place]ell % (Auto) 11.5 H (0.0-11.0) % Eos % (Auto) 2.5 (0.0-7.0) % Baso % (Auto) 0.3 (0.0-3.0) % Neut # (Auto) 4.34 (1.7-7.0) K/uL Lymph # (Auto) 1.36 (0.90-2.90) K/uL Coryell # (Auto) 0.80 (0.00-0.90) K/UL Eos # (Auto) 0.17 (0.00-0.50) K/uL Baso # (Auto) 0.02 (0.00-0.30) K/uL Abs Immat Gran (auto) 0.01 (0.00-0.30) K/uL Imm/Tot Granulo (auto) 0.1 % Sodium 137 (135-149) mmol/L Potassium 4.9 (3.6-5.1) mmol/L Chloride 100 (96-114) mmol/L Carbon Dioxide 24 (20-32) mmol/L Anion Gap 13 (7-15) mEq/L BUN 46 H (7-30) mg/dL Creatinine 1.6 H (0.5-1.5) mg/dL Estimated Creat Clear 23.55 Estimated GFR 32 ml/min Glucose 116 H (60-115) mg/dL Calcium 9.8 (8.4-10.6) mg/dL Magnesium 1.6 (1.5-2.6) mg/dL NT-Pro-B Natriuret Pep 2080 pg/mL Lipase 149 (23-300) U/L Urine Color Yellow (Yellow) Urine Appearance Clear (Clear) Urine pH 6.0 (5.0-8.5) Ur Specific Harris <= 1.005 (1.000-1.030) Urine Protein Negative (Negative) Urine Glucose (UA) Negative (Negative) Urine Ketones Negative (Negative) Urine Blood 2+ A (Negative) Urine Nitrite Positive A (Negative) Urine Bilirubin Negative (Negative) Urine Urobilinogen 0.2 (0.2-1.0) Ur Leukocyte Esterase 1+ A (Negative) Urine RBC 10-25 A (0-2) Urine WBC 25-50 A (0-5) Ur Squamous Epith Cells Moderate A (None-Few) Urine Bacteria Moderate A (None) POC Troponin I 0.00 L (0.01-0.04) ng/ml Imaging Data Chest x-ray: Attestation: I have reviewed the pertinent imaging results. Radiologist's impression: IMPRESSION: No acute cardiopulmonary process. ECG Data Attestation: I personally reviewed and interpreted this ECG as follows: Interpretation: Atrial fibrillation Rate: 88 ID: [id number] QRS axis: normal axis. No pathologic Q-waves. ST segment/T wave: Nonspecific T-wave flattening. No ST segment elevation or depression QTc: 423 Discharge Plan Discharge Clinical Impression: Dizziness, Acute UTI Patient Disposition: Home, Self-Care Condition: Stable Instructions: Urinary Tract Infection in Women (DC), Lightheadedness (ED) Additional Instructions: As we discussed, please return to the ER right away if you have any symptoms such as worsening dizziness, fainting spells or any worsening symptoms such as new fever, vomiting, chest pain, palpitations. Your workup today shows that your probably mildly dehydrated. Your workup today also suggest that you have a urinary tract infection. We will start on the antibiotic to treat your UTI today. I want you to continue monitoring Your blood pressure carefully and follow-up with your regular doctor next week for blood pressure recheck. take the antibiotic, cephalexin, twice daily for 7 days. The hospital will call you in 1 or 2 days if your urine culture grows an unusual strain of bacteria or if we need to change your antibiotic. Prescriptions: No Action carvedilol 25 mg tablet 25 mg PO BID furosemide 20 mg tablet 10 mg PO QAM timolol maleate 0.5 % drops 1 drp ophthalmic (eye) BID valsartan 160 mg tablet 160 mg PO BID Eliquis 5 mg tablet 5 mg PO BID Follow Up/Referrals: Shira Fontana PA-C [Primary Care Provider] - Stand Alone Forms: [facility] Info Instructions
--- OUTSIDE RECORDS SUMMARY | 2024-10-07 12:04 | XMS_ITS | Clinical Summary ---
Author Organization [employer] [facility] Address [address] [place] [id number] Care Team Providers Care Stroke Program Coordinator Name Role Phone Shira Fontana Primary Care Provider [phone] Allergies Active Allergy Reactions Criticality Noted Date [...] daily. 90 Tablet 3 4 Active omega 9-gnp-qjk-fish oil 1,000 mg (250 mg-750 mg)/5 mL [...] Description 10/07/2024 9:30 AM CDT Office Visit [facility] [address] [place] [address] Shira Fontana PA Blood Pressure (Follow up. Still tired and Lethargic. Still having dizzy spells but less intense. Feeling Fuzzy. Had one day of Ringing in ears on Thursday, No Reoccurrences ) 10/06/2024 Travel 09/30/2024 9:55 AM CDT Office Visit [facility] [address] [place] [address] Shira Fontana PA Blood Pressure (Low B/P readings at home. Has fallen 2 times and feeling off balance. Light headed feeling, neck pain, No nausea.) 09/29/2024 Travel 09/12/2024 8:32 AM CDT Anesthesia Event [facility] [address] [place] [address] Sole Bruce MD Perese, Deniz A, MD 09/12/2024 5:17 AM CDT - 09/12/2024 2:00 PM CDT Hospital Encounter [address] [address] Eliud Braxton MD Left renal mass Discharge Disposition: Home Self Care 09/12/2024 Travel 09/06/2024 2:00 PM CDT Ancillary Procedure [facility] [address] [place] [address] 09/06/2024 9:55 AM CDT Office Visit [facility] [address] [place] [address] Shira Fontana PA Fall (08/27 wasn't feeling right when fel happened,l in Kitchen. No Current URBINA. Having some Tired feelings. No dizzy spells. Has list of B/P from 08/31-09/06) 09/05/2024 Travel 08/22/2024 Refill [facility] [address] [place] [address] Shira Fontana PA Refill Request (Furosemide) 08/17/2024 9:30 AM CDT Office Visit [facility] [address] [place] [address] Shira Fontana PA Preoperative Exam (Dr. Carlos. Freezing left Kidney. ) 08/17/2024 Travel 08/16/2024 Telephone [facility] [address] [place] [address] Shira Fontana PA Appointment 08/12/2024 Travel 08/04/2024 2:00 PM REAL ESTATE MANAGEMENT SPECIALIST Office Visit [address] [place]ummer [address] [place] [address] Brian Muñoz MD Follow Up; CV General Cardiology Est (clearance) 08/04/2024 Travel 08/02/2024 Travel 07/30/2024 Telephone [facility] [address] [place] [address] Shira Fontana PA Prior Authorization (dapagliflozin propanediol (FARXIGA) 10 mg tablet (APPROVED 06/30/24 - 07/30/25)) 07/26/2024 9:20 AM REAL ESTATE MANAGEMENT SPECIALIST Ancillary Procedure [facility] [address] [place] [address] 07/25/2024 Travel 07/18/2024 10:20 AM REAL ESTATE MANAGEMENT SPECIALIST Office Visit [facility] [address] [place] [address] Shira Fontana PA Concerns (Cannot stay asleep/Wants [...] on file Legal Sex Female 8:26 AM REAL ESTATE MANAGEMENT SPECIALIST Gender Identity Not on file Sexual Orientation Not on file Occupation Industry Job Start Date Job End Date [place] [employer] Not on file Not [...] 10/11/2024 10:00 AM CDT Office Visit [facility] [address] [facility] [address] [place] [id number] Jamari Anders MD [address] [facility] [address] [place], [place] [id number] Health Maintenance Due Date Last Done Comments [...] UNI SCREEN RIGHT Routine 07/26/2024 9:27 AM REAL ESTATE MANAGEMENT SPECIALIST Visit for screening mammogram BASIC METABOLIC PANEL Routine 07/18/2024 11:39 AM REAL ESTATE MANAGEMENT SPECIALIST Heart failure, diastolic, due to HTN (HC) from Last 3 Months Results * (ABNORMAL) BASIC METABOLIC PANEL (09/30/2024 10:53 AM CDT) Only the most recent of3 resultswithin the time period is included. GLUCOSE 108(H) 65 - 99 mg/dL [employer] [facility] Comment: Fasting reference interval For [...] us Shira HERBERT CHEMISTRY Final Res ult [employer] [facility] [address] [place] [address], [employer] [address] [place] [address] * CT CRYOTHERAPY KIDNEY LEFT (09/12/2024 10:02 [...] questions, please contact your health care provider. [facility] LOCATION: [facility] DATE: 09/12/2024 PROCEDURE: CT GUIDED [...] place. Using intermittent CT fluoroscopy, a 5 [place] [employer]eh catheter was advanced between the anterior kidney [...] Dose reduction techniques were used. FINDINGS: The chess instructor image shows the partially exophytic solid mass [...] questions, please contact your health care provider. [facility] LOCATION: [facility] DATE: 09/12/2024 PROCEDURE: CT GUIDED [...] place. Using intermittent CT fluoroscopy, a 5 Guine[place] Y[employer]h catheter was advancedbetween the anterior kidney and colon and hydrodissection was performedwith 100 mL of dilute contrast. A standard 10 minute freeze cycle was performed with intermittent CTmonitoring to evaluate for a ice ball coverage. After the cryoprobe hadthawed, it was removed. A completion nonenhanced CT study was obtained to evaluate for perirenalhemorrhage or complication. Dose reduction techniques were used. FINDINGS: The chess instructor image shows the partially exophytic solid mass [...] removed: yes Difficulty: 0 (not difficult) Result [facility] Sole Bruce MD ANESTHESIA PX NOTE ORD ERABLES Final Result * PLATELET COUNT (09/12/2024 8:02 AM CDT) PLATELET COUNT 151 140 - 440 thou/cu mm 09/12/2024 8:13 AM CDT [facility] MPV 10.1 6.5 - 11.0 fL 09/12/2024 8:13 AM CDT [facility] Blood BLOOD SPECIMEN / Unknown Non-Lab Venipuncture / Unknown 09/12/2024 8:02 AM CDT 09/12/2024 8:07 AM CDT Result [facility] Eliud Braxton MD HEMATOLOGY Final Resul t [facility] SENDOUT INTERNAL ZIP [id number] [address] [place] [address] * (ABNORMAL) HEMOGLOBIN (09/12/2024 8:02 AM CDT) Only the most recent of2 resultswithin the time period is included. HEMOGLOBIN 16.1(H) 12.0 - 16.0 g/dL 09/12/2024 8:13 AM CDT [facility] MCV 103(H) 80 - 100 fL 09/12/2024 8:13 AM CDT [facility] Blood BLOOD SPECIMEN / Unknown Non-Lab Venipuncture / Unknown 09/12/2024 8:02 AM CDT 09/12/2024 8:07 AM CDT Eliud Braxton MD HEMATOLOGY Final Resul t Performing Organization Address [facility] de Phone Number [facility] SENDOUT INTERNAL Z[address] [place] [id number] * (ABNORMAL) PROTIME-INR (09/12/2024 8:02 AM CDT) INR 1.2 <1.3 09/12/2024 8:17 AM CDT [facility] PROTIME 13.9(H) 10.6 - 12.4 sec 09/12/2024 8:17 AM CDT [facility] Blood BLOOD SPECIMEN / Unknown Non-Lab Venipuncture / Unknown 09/12/2024 8:02 AM CDT 09/12/2024 8:07 AM CDT Narrative [facility] - 09/12/2024 8:17 AM CDT [...] HEMATOLOGY Final Resul t Performing Organization Address City/[facility]/ZIP Co de Phone Number [facility] SENDOUT [address] ZIP [address] [address] [place] [address] * SCAN-CARDIAC STRIP (09/12/2024 12:00 AM CDT) Narrative 09/12/2024 12:00 AM CDT Ordered by an unspecified provider. us Other Clinical Staff OTHER Final Resul t * CT HEAD BRAIN WO (09/06/2024 10:48 AM CDT) Anatomical Region Laterality Modality HEAD, BRAIN Computed Tomogra phy 09/06/2024 11:0 3 AM CDT Impressions 09/06/2024 11:03 AM CDT No acute intracranial noncontrast CT findings. Ovot-my-cptrgosz hypoattenuating changes in the white matter which [...] intracranial hemorrhage. Woods-white differentiation is grossly preserved. Ktdy-zz-yrrvktqc hypoattenuating changes in the white matter which [...] No acute intracranialhemorrhage. Woods-white differentiation is grossly preserved.Wego-hg-twzyiofl hypoattenuating changes in the white matter which arenonspecific, but commonly attributable to chronic microangiopathic change.Mild parenchymal volume loss with commensurate size of the ventricles andsulci. There are intracranial vascular calcifications. Bones: No acute osseous findings. Visualized paranasal sinuses are clear.Visualized mastoid air cells are clear. IMPRESSION: No acute intracranial noncontrast CT findings. Lcym-vv-irhmedwz hypoattenuating changes in the white matter which [...] BRENDA UNI SCREEN RIGHT (07/26/2024 9:27 AM REAL ESTATE MANAGEMENT SPECIALIST) Anatomical Region Laterality Modality BREASTS, Breast Right Right Mammograph y Impressions 07/27/2024 2:54 PM REAL ESTATE MANAGEMENT SPECIALIST There is no radiographic evidence for malignancy. Recommend annual mammograms. MAMMOGRAM ASSESSMENT: ACR 1 Negative PATIENTS: You will also receive a letter with your examination results in an easy to read format. If you have questions about your results, please contact your referring provider. Narrative 07/27/2024 2:54 PM REAL ESTATE MANAGEMENT SPECIALIST For Patients: As a result of the 21st Century Cures Act, medical imaging exams and procedure reports are released immediately into your electronic medical record. You may view this report before your referring provider. If you have questions, please contact your health care provider. XR MAMMO BRENDA UNI SCREEN RIGHT [[id number]] CLINICAL HISTORY: This is an asymptomatic 83 y.o. patient. INDICATION FOR EXAM: Mammogram Screening. TECHNIQUE: CC and MLO views were obtained. This study was evaluated with the assistance of Computer-Aided Detection. Breast Tomosynthesis was used in interpretation. COMPARISON FILM: Yes 07/07/23 [facility] 2/1/23 [facility] FINDINGS: The breasts are heterogeneously dense, which may obscure small masses. There are no dominant masses, suspicious micro calcifications or areas of architectural distortion. Shira HERBERT MAMMO Final Res ult from Last 3 Months Insurance MEDICARE PB ONLY [facility] E[facility] MEDICARE PART B HB ONLY MEDICARE PART A HB ONLY Advance Directives Documents on File Type Date Recorded Patient Keno Writer/Runner Expl anation Power of Mission Worker 09/29/2022 11:51 AM Healthcare Directive 09/29/2022 11:50 [...] Preferences, Provider to review later Care Teams Stroke Program Coordinator Relationship Specialty Start Date End Date Shira Fontana PA [address] [place] [address] PCP - General Physician Title Search Manager 08/26/22
--- NOTE | 2024-10-07 12:18 | CRLHL7_ITS ---
For Patients: As a result of the Cures Act, medical imaging exams and procedure reports are released immediately into your electronic medical record. You may view this report before your referring provider. If you have questions, please contact your health care provider. INDICATION: : episodes of hypotension, lightheadedness COMPARISON: None TECHNIQUE: Two view(s) of the chest FINDINGS: Mild cardiomegaly. There is no focal airspace consolidation, pleural effusion, or pneumothorax. No displaced fractures. IMPRESSION: No acute cardiopulmonary process. Dictated by Guilherme Rasmussen MD @ 10/07/2024 1:04:33 PM (Electronically Signed)
[2024-10-07 12:34] LABS: Appearance Urine Clear (Clear); Bilirubin Urine Negative (Negative); Blood Urine 2+ (Negative); Color Urine Yellow (Yellow); Glucose Urine Negative (Negative); Ketones Urine Negative (Negative); Leukocyte Esterase Urine 1+ (Negative); Nitrite Urine Positive (Negative); Protein Urine Negative (Negative); Specific Gravity Urine <= 1.005 (1.000-1.030); Urobilinogen Urine 0.2 (0.2-1.0)
[2024-10-07] MEDS: 0.9 % SODIUM CHLORIDE 1000 ml 1,000 ML IV (12:50)
[2024-10-07 12:59] LABS: Basophils Absolute Auto 0.02 K/uL (0.00-0.30); Basophils Percent Auto 0.3 % (0.0-3.0); Eosinophils Absolute Auto 0.17 K/uL (0.00-0.50); Eosinophils Percent Auto 2.5 % (0.0-7.0); Hematocrit* 47.2 % (33.0-51.0); Hemoglobin* 15.9 gm/dL (12.0-16.0); Immature Granulocytes Abs Auto 0.01 K/uL (0.00-0.30); Immature Granulocytes Pct Auto 0.1 %; Lymphocytes Absolute Auto 1.36 K/uL (0.90-2.90); Lymphocytes Percent Auto 20.4 % (20-44); Mean Corpuscular HGB Conc 34 gm/dL (32-36); Mean Corpuscular Hemoglobin 35 pg (26-34); Mean Corpuscular Volume 105 fL (80-100); Monocytes Percent Auto 11.5 % (0.0-11.0); Neutrophils Absolute Auto 4.34 K/uL (1.7-7.0); Neutrophils Percent Auto 65.2 % (42.0-72.0); Platelet Count* 151 K/uL (140-440); RDW Coefficient of Variation % 12.4 % (11.5-15.5); Red Blood Count* 4.51 m/uL (4.00-5.20); White Blood Count* 6.67 K/uL (4.50-11.00)
[2024-10-07 13:03] LABS: Slide Review Reflex No
[2024-10-07 13:05] LABS: Bacteria Urine Moderate; Squamous Epithelial Cell Urine Moderate (None-Few); WBC Urine 25-50 (0-5)
[2024-10-07 13:11] LABS: Chloride* 100 mmol/L (96-114); Sodium* 137 mmol/L (135-149)
[2024-10-07 13:12] LABS: Potassium* 4.9 mmol/L (3.6-5.1)
[2024-10-07 13:14] LABS: Anion Gap 13 mEq/L (7-15); Blood Urea Nitrogen* 46 mg/dL (7-30); Carbon Dioxide* 24 mmol/L (20-32); Creatinine* 1.6 mg/dL (0.5-1.5); Est. Creatinine Clearance* 23.55; Estimated Glomerular Filt Rate 32 ml/min; Lipase* 149 U/L (23-300)
[2024-10-07 13:15] LABS: Calcium* 9.8 mg/dL (8.4-10.6); Glucose* 116 mg/dL (60-115); Magnesium* 1.6 mg/dL (1.5-2.6)
[2024-10-07 13:31] LABS: NT Pro B Type NatriureticPept* 2080 pg/mL
--- NOTE | 2024-10-11 11:44 | ED_ITS ---
HPI - General Adult General Chief complaint: Hypotension Stated complaint: Clinic sent her over to ED- low pressure Time Seen by Provider: 10/07/24 11:21 History of Present Illness HPI narrative: Addendum to patient's recent ER visit. Patient is on cephalexin for UTI. Culture came back growing pansensitive E coli. No change in antibiotics necessary. Related Data Home Medications ?Medication ?Instructions ?Recorded ?Confirmed apixaban 5 mg tablet (Eliquis) 5 mg PO BID 10/07/24 10/07/24 carvedilol 25 mg tablet 25 mg PO BID 10/07/24 10/07/24 furosemide 20 mg tablet 10 mg PO QAM 10/07/24 10/07/24 timolol maleate 0.5 % eye drops 1 drp ophthalmic (eye) BID 10/07/24 10/07/24 valsartan 160 mg tablet 160 mg PO BID 10/07/24 10/07/24 Allergies Allergy/AdvReac Type Severity Reaction Status Date / Time diphenhydramine (From Allergy Intermediate behavorial Verified 10/07/24 11:34 Benadryl) disturbance hydralazine Allergy Mild itching Verified 10/07/24 11:34 hydrochlorothiazide Allergy Mild itching Verified 10/07/24 11:34 Sulfa (Sulfonamide Allergy Verified 10/07/24 11:34 Antibiotics) PFSH PFSH Social History Smoking Status: Former smoker Do you use any of these nicotine containing products: None Second hand tobacco smoke exposure: No How often do you have a drink containing alcohol: 4 or more times a week How many standard drinks containing alcohol do you have on a typical day: 1 or 2 How often do you have six or more drinks on one occasion: Never AUDIT-C Alcohol total score: 4 Non-prescribed substance use: denies use service: No Course Vital Signs Vital signs: Initial Vital Signs Temperature 97.4 F L 10/07/24 11:19 Temperature Source Temporal Artery Scan 10/07/24 11:19 Pulse Rate 60 10/07/24 11:19 Respiratory Rate 18 10/07/24 11:19 Blood Pressure 124/81 10/07/24 11:19 Blood Pressure Mean 95 10/07/24 11:19 Blood Pressure Position Sitting 10/07/24 11:19 Pulse Oximetry 97 10/07/24 11:19 Oxygen Delivery Method Room Air 10/07/24 11:19 Vital Signs Temperature 97.4 F L 10/07/24 11:19 Pulse Rate 60 10/07/24 11:19 Respiratory Rate 18 10/07/24 11:19 Blood Pressure 124/81 10/07/24 11:19 Pulse Oximetry 97 10/07/24 11:19 Oxygen Delivery Method Room Air 10/07/24 11:19 Temperature 97.4 F L 10/07/24 11:19 Pulse Rate 90 10/07/24 16:00 Respiratory Rate 18 10/07/24 15:54 Blood Pressure 147/78 H 10/07/24 15:54 Pulse Oximetry 97 10/07/24 16:00 Oxygen Delivery Method Room Air 10/07/24 13:32 Medications Administered Medications: Discontinued Medications Generic Name Dose Route Start Last Admin Trade Name Freq PRN Reason Stop Dose Admin Sodium Chloride 1,000 mls @ 1,000 mls/hr 10/07/24 12:30 10/07/24 13:52 0.9 % Sodium Chloride 1000 Ml IV 10/07/24 13:29 Infused .Q1H MAX Infusion Medical Decision Making Lab Data Labs: Lab Results 10/07/24 10/07/24 10/07/24 Range/Units 12:19 12:25 12:47 WBC 6.67 (4.50-11.00) K/uL RBC 4.51 (4.00-5.20) m/uL Hgb 15.9 (12.0-16.0) gm/dL Hct 47.2 (33.0-51.0) % MCV 105 H (80-100) fL MCH 35 H (26-34) pg MCHC 34 (32-36) gm/dL RDW Coeff of Carmita 12.4 (11.5-15.5) % Plt Count 151 (140-440) K/uL Neut % (Auto) 65.2 (42.0-72.0) % Lymph % (Auto) 20.4 (20-44) % Barron % (Auto) 11.5 H (0.0-11.0) % Eos % (Auto) 2.5 (0.0-7.0) % Baso % (Auto) 0.3 (0.0-3.0) % Neut # (Auto) 4.34 (1.7-7.0) K/uL Lymph # (Auto) 1.36 (0.90-2.90) K/uL Barron # (Auto) 0.80 (0.00-0.90) K/UL Eos # (Auto) 0.17 (0.00-0.50) K/uL Baso # (Auto) 0.02 (0.00-0.30) K/uL Abs Immat Gran (auto) 0.01 (0.00-0.30) K/uL Imm/Tot Granulo (auto) 0.1 % Sodium 137 (135-149) mmol/L Potassium 4.9 (3.6-5.1) mmol/L Chloride 100 (96-114) mmol/L Carbon Dioxide 24 (20-32) mmol/L Anion Gap 13 (7-15) mEq/L BUN 46 H (7-30) mg/dL Creatinine 1.6 H (0.5-1.5) mg/dL Estimated Creat Clear 23.55 Estimated GFR 32 ml/min Glucose 116 H (60-115) mg/dL Calcium 9.8 (8.4-10.6) mg/dL Magnesium 1.6 (1.5-2.6) mg/dL NT-Pro-B Natriuret Pep 2080 pg/mL Lipase 149 (23-300) U/L Urine Color Yellow (Yellow) Urine Appearance Clear (Clear) Urine pH 6.0 (5.0-8.5) Ur Specific Crosby <= 1.005 (1.000-1.030) Urine Protein Negative (Negative) Urine Glucose (UA) Negative (Negative) Urine Ketones Negative (Negative) Urine Blood 2+ A (Negative) Urine Nitrite Positive A (Negative) Urine Bilirubin Negative (Negative) Urine Urobilinogen 0.2 (0.2-1.0) Ur Leukocyte Esterase 1+ A (Negative) Urine RBC 10-25 A (0-2) Urine WBC 25-50 A (0-5) Ur Squamous Epith Cells Moderate A (None-Few) Urine Bacteria Moderate A (None) POC Troponin I 0.00 L (0.01-0.04) ng/ml Discharge Plan Discharge Clinical Impression: Dizziness, Acute UTI Patient Disposition: Home, Self-Care Condition: Stable Instructions: Urinary Tract Infection in Women (DC), Lightheadedness (ED) Additional Instructions: As we discussed, please return to the ER right away if you have any symptoms such as worsening dizziness, fainting spells or any worsening symptoms such as new fever, vomiting, chest pain, palpitations. Your workup today shows that your probably mildly dehydrated. Your workup today also suggest that you have a urinary tract infection. We will start on the antibiotic to treat your UTI today. I want you to continue monitoring Your blood pressure carefully and follow-up with your regular doctor next week for blood pressure recheck. take the antibiotic, cephalexin, twice daily for 7 days. The hospital will call you in 1 or 2 days if your urine culture grows an unusual strain of bacteria or if we need to change your antibiotic. Prescriptions: No Action carvedilol 25 mg tablet 25 mg PO BID furosemide 20 mg tablet 10 mg PO QAM timolol maleate 0.5 % drops 1 drp ophthalmic (eye) BID valsartan 160 mg tablet 160 mg PO BID Eliquis 5 mg tablet 5 mg PO BID Follow Up/Referrals: Shira Fontana PA-C [Primary Care Provider] - Stand Alone Forms: [employer] Info Instructions
== END 2024-10-07 16:08 | disposition home or self-care (01) ==
PROVIDERS: Emergency Provider Emergency Medicine; PCP Student in an Organized Health Care Education/Training Program
DX: R07.9 Chest pain, unspecified (principal)
CPT/HCPCS: 36415; 71046; 80048; 81001; 83690; 83735; 83880; 84484; 85025; 87086; 93005; 99281; 99284; J7030